=== PATIENT | female | born 1970 | race African-American/Black ===

== ENCOUNTER 2023-06-07 18:13 | Inpatient (IN) | payer OTHER, MEDICAID ==
[~2023-06-07] VITALS: Ht 162.6 cm; Wt 178.7 kg
[2023-06-07 18:25] VITALS: BP_SYST 135; PULSE 90; RESP 22; TEMP 97.1; O2SAT 97
[2023-06-07] MEDS ORDERED: NACL 0.9% 1,000 ML IV ONE ×2 (18:30→22:00)
[2023-06-07 18:54] LABS: ABG O2 SAT% ESTIMATE 92.9 % (94.0-100.0); BLOOD GAS BASE EXCESS 3.6 mmol/L (-3.0-3.0); BLOOD GAS HCO3 29.4 mmol/L (21.0-27.0); BLOOD GAS PCO2 48.5 mmHg (35.0-45.0); BLOOD GAS PO2 66.2 mmHg (75.0-100.0)
[2023-06-07 18:55] LABS: ALLEN'S TEST POSITIVE (P)
[2023-06-07 21:31] LABS: BASOPHILS # (AUTO) 0.1 K/uL (0.0-0.2); BASOPHILS % (AUTO) 0.7 % (0.0-2.0); EOSINOPHILS % (AUTO) 0.2 % (0.0-4.0); HEMATOCRIT 34.8 % (36-48); HEMOGLOBIN 10.9 g/dL (12.0-16.0); LYMPHOCYTES # (AUTO) 1.4 K/uL (1.0-5.5); LYMPHOCYTES % (AUTO) 13.1 % (20.5-51.5); MEAN CORPUSCULAR HEMOGLOBIN 29 pg (27-31); MEAN CORPUSCULAR HGB CONC 31 % (32-36); MEAN CORPUSCULAR VOLUME 93 fL (79.0-98.0); MONOCYTES # (AUTO) 0.7 K/uL (0.0-1.0); MONOCYTES % (AUTO) 6.8 % (1.7-9.3); NEUTROPHILS # (AUTO) 8.2 K/uL (1.8-7.7); NEUTROPHILS % (AUTO) 79.2 % (40.0-70.0); PLATELET COUNT (AUTO) 276 K/uL (130-430); RED BLOOD CELL COUNT(AUTO) 3.74 MIL/uL (4.2-6.2); RED CELL DISTRIBUTION WIDTH 14.3 % (9.0-15.0); WHITE BLOOD COUNT (AUTO) 10.4 K/uL (4.8-10.8)
[2023-06-07 21:46] LABS: ACETONE, SERUM TRACE (NEGATIVE)
[2023-06-07 21:55] LABS: ALANINE AMINOTRANSFERASE 17 U/L (12-78); ALBUMIN 3.6 g/dL (3.4-4.8); ANION GAP 10 (5-15); ASPARTATE AMINOTRANSFERASE 15 U/L (10-37); CALCIUM 9.9 mg/dL (8.4-11.0); CARBON DIOXIDE 30 mmol/L (23-29); CHLORIDE 83 mmol/L (98-107); CREATININE 3.01 mg/dL (0.55-1.30); GFR AFRICAN AMERICAN 21 mL/min (>90); GFR NON AFRICAN-AMERICAN 17 mL/min (>90); POTASSIUM 4.1 mmol/L (3.5-5.1); SODIUM SERUM 123 mmol/L (136-145); TOTAL BILIRUBIN 0.4 mg/dL (0.0-1.0); UREA NITROGEN, BLOOD 64 mg/dL (8-21)
[2023-06-07 21:57] LABS: GLUCOSE 489 mg/dL (74-106)
[2023-06-07] MEDS ORDERED: INSULIN REGULAR, HUMAN 100 UNITS/ML, 3 ML VIAL IVP ONE (23:45)
[2023-06-08] MEDS ORDERED: PANT40TA45 PO (00:38)
[2023-06-08] MEDS ORDERED: ALLO100T PO (00:38)
[2023-06-08] MEDS ORDERED: ATOR20TA64 PO (00:38)
[2023-06-08] MEDS ORDERED: FURO80TA3 PO (00:38)
[2023-06-08] MEDS ORDERED: METO10TA8 PO (00:46)
[2023-06-08] MEDS ORDERED: DULO60CA42 PO (00:46)
[2023-06-08] MEDS ORDERED: SPIR25TA PO (00:46)
[2023-06-08] MEDS ORDERED: CYCL10TA24 PO (00:46)
[2023-06-08] MEDS ORDERED: COR6.25 PO (00:46)
[2023-06-08] MEDS ORDERED: INSU200I SQ (00:46)
[2023-06-08] MEDS ORDERED: GABA800T PO (00:46)
[2023-06-08] MEDS ORDERED: INSU100I26 SQ (00:46)
[2023-06-08] MEDS ORDERED: HYDR200T80 PO (00:46)
[2023-06-08] MEDS ORDERED: HYDR-3927 PO (00:46)
[2023-06-08 01:28] LABS: BILIRUBIN,URINE NEGATIVE (NEGATIVE); BLOOD, URINE 1+ (NEGATIVE); CLARITY/URINE SL CLOUDY (CLEAR); COLOR,URINE YELLOW (YELLOW); GLUCOSE,URINE 3+ (NEGATIVE); KETONES,URINE NEGATIVE (NEGATIVE); LEUKOCYTE ESTERASE ,URINE 2+ (NEGATIVE); NITRITE, URINE NEGATIVE (NEGATIVE); PH,URINE 5.5 (5.0-8.0); PROTEIN URINE NEGATIVE (NEGATIVE); UROBILINOGEN,URINE 0.2 (0.2-1.0)
[2023-06-08 01:32] LABS: BACTERIA,URINE MANY /HPF (None Seen); WBC,URINE 20-50 /HPF (0-3); YEAST,URINE Moderate /HPF (None Seen)
[2023-06-08] MEDS ORDERED: INSULIN REGULAR, HUMAN 10 UNITS/0.1 ML, 3 ML VIAL ONE (07:59)
[2023-06-08] MEDS: INSULIN REGULAR, HUMAN 100 UNITS/ML, 3 ML VIAL (humuLIN R) SUBCUT PRN ×2 (08:02→11:34)
[2023-06-08 09:55] VITALS: BP_SYST 125; PULSE 112; RESP 18; TEMP 98.2; O2SAT 100
[2023-06-08] MEDS ORDERED: ONDANSETRON HCL 4 MG/2 ML VIAL IVP PRN (10:00)
[2023-06-08] MEDS ORDERED: LORazepam 2 MG/ML VIAL IVP PRN (10:00)
[2023-06-08] MEDS ORDERED: NALOXONE HCL 0.4 MG/ML AMP (NARCAN) IVP PRN ×2 (10:00)
[2023-06-08] MEDS ORDERED: INSULIN GLARGINE HUM REC ANLOG 60 UNIT SQ SCH (10:00)
[2023-06-08] MEDS ORDERED: ACETAMINOPHEN 325 MG TABLET PO PRN ×2 (10:00)
[2023-06-08] MEDS ORDERED: [UNRECOGNIZED DRUG - OTHER] SQ SCH (10:00)
[2023-06-08] MEDS ORDERED: CARVEDILOL 6.25 MG TABLET (COREG) PO ONE (10:15)
[2023-06-08] MEDS ORDERED: ALLOPURINOL 100 MG TABLET (ZYLOPRIM) PO ONE (10:15)
[2023-06-08 10:27] LABS: BASOPHILS % (AUTO) 0.4 % (0.0-2.0); EOSINOPHILS # (AUTO) 0.1 K/uL (0.0-0.4); EOSINOPHILS % (AUTO) 0.8 % (0.0-4.0); HEMOGLOBIN 11.4 g/dL (12.0-16.0); LYMPHOCYTES # (AUTO) 1.2 K/uL (1.0-5.5); LYMPHOCYTES % (AUTO) 13.4 % (20.5-51.5); MEAN CORPUSCULAR HEMOGLOBIN 29 pg (27-31); MEAN CORPUSCULAR HGB CONC 31 % (32-36); MEAN CORPUSCULAR VOLUME 94 fL (79.0-98.0); MONOCYTES # (AUTO) 0.7 K/uL (0.0-1.0); MONOCYTES % (AUTO) 7.5 % (1.7-9.3); NEUTROPHILS % (AUTO) 77.9 % (40.0-70.0); PLATELET COUNT (AUTO) 284 K/uL (130-430); RED BLOOD CELL COUNT(AUTO) 3.95 MIL/uL (4.2-6.2); RED CELL DISTRIBUTION WIDTH 14.3 % (9.0-15.0)
[2023-06-08 10:57] LABS: ALBUMIN 3.7 g/dL (3.4-4.8); CALCIUM 9.8 mg/dL (8.4-11.0); CREATININE 2.45 mg/dL (0.55-1.30); PHOSPHORUS 3.9 mg/dL (2.7-4.5); POTASSIUM 3.7 mmol/L (3.5-5.1); TOTAL BILIRUBIN 0.5 mg/dL (0.0-1.0); TOTAL PROTEIN, SERUM 8.3 g/dL (6.4-8.3)
[2023-06-08] MEDS ORDERED: PANTOPRAZOLE SODIUM 40 MG TAB PO ONE (11:00)
[2023-06-08] MEDS ORDERED: HYDROXYCHLOROQUINE SULFATE 200 MG TABLET PO ONE (11:00)
[2023-06-08] MEDS ORDERED: SPIRONOLACTONE 25 MG TABLET (ALDACTONE) PO ONE (11:00)
[2023-06-08] MEDS ORDERED: FUROSEMIDE 80 MG TABLET PO ONE (11:00)
[2023-06-08] MEDS ORDERED: GABAPENTIN 400 MG CAPSULE PO ONE (11:00)
[2023-06-08] MEDS ORDERED: CIPROFLOXACIN LACT 200 MG/D5W 100 ML IV ONE (11:00)
[2023-06-08] MEDS ORDERED: metOLazone 5 MG TABLET PO ONE (11:00)
[2023-06-08] MEDS ORDERED: DULoxetine HCL 30 MG CAPSULE.DR (CYMBALTA) PO ONE (11:00)
[2023-06-08] MEDS: NACL 0.9% 1,000 ML IV SCH ×2 (11:23→20:50)
[2023-06-08] MEDS: HYDROcodone/ACETAMIN 5-325 MG TAB (NORCO/ VICODIN) PO PRN ×2 (11:30→21:22)
[2023-06-08] MEDS ORDERED: INSULIN LISPRO 20 UNIT SQ SCH (11:30)
[2023-06-08] MEDS: INSULIN Lispro 100 UNITS/ML, 3 ML VIAL (humaLOG) SUBCUT SCH ×2 (11:32→16:40)
[2023-06-08 11:52] VITALS: BP_SYST 125; PULSE 112; RESP 18; TEMP 98.2; O2SAT 100
[2023-06-08 12:00] VITALS: BP_SYST 135; PULSE 106; RESP 18; TEMP 97.7; O2SAT 100
[2023-06-08] MEDS: CYCLOBENZAPRINE HCL 10 MG TABLET (FLEXERIL) PO SCH ×2 (14:30→21:18)
[2023-06-08 16:00] VITALS: BP_SYST 129; PULSE 97; RESP 18; TEMP 97.3; O2SAT 98
[2023-06-08 20:00] VITALS: BP_SYST 147; PULSE 95; RESP 17; TEMP 97.7; O2SAT 96
[2023-06-08] MEDS: CIPROFLOXACIN LACT 200 MG/D5W 100 ML IV SCH (20:49)
[2023-06-08 20:57] LABS: CHLORIDE,URINE RANDOM 30 mmol/L (55-125)
[2023-06-08] MEDS: ATORVASTATIN 20 MG TABLET PO SCH (21:18)
[2023-06-08] MEDS: CARVEDILOL 6.25 MG TABLET (COREG) PO SCH (21:19)
[2023-06-08] MEDS: GABAPENTIN 400 MG CAPSULE PO SCH (21:19)
[2023-06-09] VITALS (8 sets, daily range): BP systolic 116–144; PULSE 69–99; RESP 18–19; TEMP 96.8–98.4; O2SAT 93–100
[2023-06-09] MEDS: NACL 0.9% 1,000 ML IV SCH ×2 (06:08→15:34)
[2023-06-09 06:09] LABS: BASOPHILS % (AUTO) 0.7 % (0.0-2.0); EOSINOPHILS # (AUTO) 0.1 K/uL (0.0-0.4); EOSINOPHILS % (AUTO) 1.6 % (0.0-4.0); HEMATOCRIT 34.2 % (36-48); HEMOGLOBIN 10.8 g/dL (12.0-16.0); LYMPHOCYTES # (AUTO) 1.6 K/uL (1.0-5.5); LYMPHOCYTES % (AUTO) 23.3 % (20.5-51.5); MEAN CORPUSCULAR HEMOGLOBIN 29 pg (27-31); MEAN CORPUSCULAR HGB CONC 32 % (32-36); MEAN CORPUSCULAR VOLUME 93 fL (79.0-98.0); MONOCYTES # (AUTO) 0.7 K/uL (0.0-1.0); MONOCYTES % (AUTO) 10.4 % (1.7-9.3); NEUTROPHILS # (AUTO) 4.4 K/uL (1.8-7.7); PLATELET COUNT (AUTO) 266 K/uL (130-430); RED BLOOD CELL COUNT(AUTO) 3.69 MIL/uL (4.2-6.2); RED CELL DISTRIBUTION WIDTH 14.4 % (9.0-15.0); WHITE BLOOD COUNT (AUTO) 6.8 K/uL (4.8-10.8)
[2023-06-09] MEDS: INSULIN Lispro 100 UNITS/ML, 3 ML VIAL (humaLOG) SUBCUT SCH ×3 (06:12→17:07)
[2023-06-09] MEDS: INSULIN REGULAR, HUMAN 100 UNITS/ML, 3 ML VIAL (humuLIN R) SUBCUT PRN ×4 (06:15→22:10)
[2023-06-09 06:42] LABS: ALBUMIN 3.3 g/dL (3.4-4.8); CALCIUM 9.8 mg/dL (8.4-11.0); CREATININE 2.18 mg/dL (0.55-1.30); PHOSPHORUS 4.1 mg/dL (2.7-4.5); TOTAL BILIRUBIN 0.4 mg/dL (0.0-1.0); TOTAL PROTEIN, SERUM 7.6 g/dL (6.4-8.3)
[2023-06-09] MEDS: GABAPENTIN 400 MG CAPSULE PO SCH ×2 (08:45→21:58)
[2023-06-09] MEDS: metOLazone 5 MG TABLET PO SCH (08:45)
[2023-06-09] MEDS: ALLOPURINOL 100 MG TABLET (ZYLOPRIM) PO SCH (08:46)
[2023-06-09] MEDS: PANTOPRAZOLE SODIUM 40 MG TAB PO SCH (08:46)
[2023-06-09] MEDS: DULoxetine HCL 30 MG CAPSULE.DR (CYMBALTA) PO SCH (08:46)
[2023-06-09] MEDS: HYDROXYCHLOROQUINE SULFATE 200 MG TABLET PO SCH (08:46)
[2023-06-09] MEDS: CYCLOBENZAPRINE HCL 10 MG TABLET (FLEXERIL) PO SCH ×3 (08:46→21:58)
[2023-06-09] MEDS: CARVEDILOL 6.25 MG TABLET (COREG) PO SCH ×2 (08:47→21:58)
[2023-06-09] MEDS: SPIRONOLACTONE 25 MG TABLET (ALDACTONE) PO SCH (08:47)
[2023-06-09] MEDS: FUROSEMIDE 80 MG TABLET PO SCH (08:47)
[2023-06-09] MEDS: INSULIN GLARGINE 100 UNITS/ML, 10 ML VIAL SUBCUT SCH (08:51)
[2023-06-09] MEDS: HYDROcodone/ACETAMIN 5-325 MG TAB (NORCO/ VICODIN) PO PRN ×2 (08:58→17:03)
[2023-06-09] MEDS: CIPROFLOXACIN LACT 200 MG/D5W 100 ML IV SCH ×2 (10:10→21:57)
[2023-06-09] MEDS: ATORVASTATIN 20 MG TABLET PO SCH (21:58)
[2023-06-10] VITALS (7 sets, daily range): BP systolic 109–144; PULSE 68–101; RESP 18–20; TEMP 97.5–98.6; O2SAT 93–100
[2023-06-10] MEDS: NACL 0.9% 1,000 ML IV SCH ×2 (02:40→14:12)
[2023-06-10] MEDS: SPIRONOLACTONE 25 MG TABLET (ALDACTONE) PO SCH (09:59)
[2023-06-10] MEDS: GABAPENTIN 400 MG CAPSULE PO SCH ×2 (10:00→20:31)
[2023-06-10] MEDS: DULoxetine HCL 30 MG CAPSULE.DR (CYMBALTA) PO SCH (10:00)
[2023-06-10] MEDS: FUROSEMIDE 80 MG TABLET PO SCH (10:00)
[2023-06-10] MEDS: PANTOPRAZOLE SODIUM 40 MG TAB PO SCH (10:00)
[2023-06-10] MEDS: ALLOPURINOL 100 MG TABLET (ZYLOPRIM) PO SCH (10:00)
[2023-06-10] MEDS: CARVEDILOL 6.25 MG TABLET (COREG) PO SCH ×2 (10:01→20:32)
[2023-06-10] MEDS: CYCLOBENZAPRINE HCL 10 MG TABLET (FLEXERIL) PO SCH ×3 (10:02→20:33)
[2023-06-10] MEDS: HYDROXYCHLOROQUINE SULFATE 200 MG TABLET PO SCH (10:27)
[2023-06-10] MEDS: metOLazone 5 MG TABLET PO SCH (10:41)
[2023-06-10] MEDS: INSULIN GLARGINE 100 UNITS/ML, 10 ML VIAL SUBCUT SCH ×2 (10:43→20:45)
[2023-06-10 11:01] LABS: BASOPHILS # (AUTO) 0.1 K/uL (0.0-0.2); BASOPHILS % (AUTO) 0.8 % (0.0-2.0); EOSINOPHILS # (AUTO) 0.1 K/uL (0.0-0.4); EOSINOPHILS % (AUTO) 1.2 % (0.0-4.0); HEMATOCRIT 33.7 % (36-48); HEMOGLOBIN 10.4 g/dL (12.0-16.0); LYMPHOCYTES # (AUTO) 1.2 K/uL (1.0-5.5); LYMPHOCYTES % (AUTO) 17.7 % (20.5-51.5); MEAN CORPUSCULAR HEMOGLOBIN 29 pg (27-31); MEAN CORPUSCULAR HGB CONC 31 % (32-36); MEAN CORPUSCULAR VOLUME 94 fL (79.0-98.0); MONOCYTES # (AUTO) 0.7 K/uL (0.0-1.0); MONOCYTES % (AUTO) 10.2 % (1.7-9.3); NEUTROPHILS # (AUTO) 4.7 K/uL (1.8-7.7); NEUTROPHILS % (AUTO) 70.1 % (40.0-70.0); PLATELET COUNT (AUTO) 242 K/uL (130-430); RED BLOOD CELL COUNT(AUTO) 3.59 MIL/uL (4.2-6.2); RED CELL DISTRIBUTION WIDTH 14.5 % (9.0-15.0); WHITE BLOOD COUNT (AUTO) 6.7 K/uL (4.8-10.8)
[2023-06-10] MEDS: HYDROcodone/ACETAMIN 5-325 MG TAB (NORCO/ VICODIN) PO PRN ×2 (11:01→20:37)
[2023-06-10 11:13] LABS: CALCIUM 9.5 mg/dL (8.4-11.0); CREATININE 1.9 mg/dL (0.55-1.30); POTASSIUM 3.3 mmol/L (3.5-5.1)
[2023-06-10] MEDS: INSULIN Lispro 100 UNITS/ML, 3 ML VIAL (humaLOG) SUBCUT SCH ×2 (11:30→17:22)
[2023-06-10] MEDS: CIPROFLOXACIN LACT 200 MG/D5W 100 ML IV SCH ×2 (11:57→20:57)
[2023-06-10] MEDS: INSULIN REGULAR, HUMAN 100 UNITS/ML, 3 ML VIAL (humuLIN R) SUBCUT PRN ×3 (12:09→20:47)
[2023-06-10] MEDS ORDERED: CHOLECALCIFEROL (VITAMIN D3) 2,000 UNIT TABLET PO ONE (15:00)
[2023-06-10] MEDS: ATORVASTATIN 20 MG TABLET PO SCH (20:33)
[2023-06-11] VITALS (7 sets, daily range): BP systolic 109–161; PULSE 57–96; RESP 16–20; TEMP 97.6–98.8; O2SAT 94–100
[2023-06-11] MEDS: NACL 0.9% 1,000 ML IV SCH ×3 (03:14→17:06)
[2023-06-11 06:24] LABS: BASOPHILS # (AUTO) 0.1 K/uL (0.0-0.2); EOSINOPHILS # (AUTO) 0.1 K/uL (0.0-0.4); EOSINOPHILS % (AUTO) 2.1 % (0.0-4.0); HEMATOCRIT 31.4 % (36-48); HEMOGLOBIN 9.8 g/dL (12.0-16.0); LYMPHOCYTES # (AUTO) 1.5 K/uL (1.0-5.5); LYMPHOCYTES % (AUTO) 21.8 % (20.5-51.5); MEAN CORPUSCULAR HEMOGLOBIN 29 pg (27-31); MEAN CORPUSCULAR HGB CONC 31 % (32-36); MEAN CORPUSCULAR VOLUME 93 fL (79.0-98.0); MONOCYTES # (AUTO) 0.8 K/uL (0.0-1.0); MONOCYTES % (AUTO) 11.5 % (1.7-9.3); NEUTROPHILS # (AUTO) 4.5 K/uL (1.8-7.7); NEUTROPHILS % (AUTO) 63.6 % (40.0-70.0); PLATELET COUNT (AUTO) 235 K/uL (130-430); RED BLOOD CELL COUNT(AUTO) 3.36 MIL/uL (4.2-6.2); RED CELL DISTRIBUTION WIDTH 14.5 % (9.0-15.0)
[2023-06-11 07:02] LABS: CALCIUM 9.1 mg/dL (8.4-11.0); CREATININE 1.67 mg/dL (0.55-1.30); PHOSPHORUS 3.1 mg/dL (2.7-4.5); POTASSIUM 3.2 mmol/L (3.5-5.1)
[2023-06-11] MEDS: INSULIN Lispro 100 UNITS/ML, 3 ML VIAL (humaLOG) SUBCUT SCH ×3 (07:16→16:21)
[2023-06-11 08:41] LABS: ERYTHROCYTE SEDIMENTATION RATE 69 MM/HR (0-20)
[2023-06-11] MEDS: PANTOPRAZOLE SODIUM 40 MG TAB PO SCH (09:05)
[2023-06-11] MEDS: CHOLECALCIFEROL (VITAMIN D3) 2,000 UNIT TABLET PO SCH (09:05)
[2023-06-11] MEDS: GABAPENTIN 400 MG CAPSULE PO SCH ×2 (09:07→21:47)
[2023-06-11] MEDS: DULoxetine HCL 30 MG CAPSULE.DR (CYMBALTA) PO SCH (09:07)
[2023-06-11] MEDS: ALLOPURINOL 100 MG TABLET (ZYLOPRIM) PO SCH (09:07)
[2023-06-11] MEDS: CARVEDILOL 6.25 MG TABLET (COREG) PO SCH ×2 (09:07→21:48)
[2023-06-11] MEDS: SPIRONOLACTONE 25 MG TABLET (ALDACTONE) PO SCH (09:08)
[2023-06-11] MEDS: FUROSEMIDE 80 MG TABLET PO SCH (09:08)
[2023-06-11] MEDS: CYCLOBENZAPRINE HCL 10 MG TABLET (FLEXERIL) PO SCH ×3 (09:08→21:47)
[2023-06-11] MEDS: HYDROXYCHLOROQUINE SULFATE 200 MG TABLET PO SCH (09:08)
[2023-06-11] MEDS: INSULIN GLARGINE 100 UNITS/ML, 10 ML VIAL SUBCUT SCH ×2 (09:14→22:09)
[2023-06-11] MEDS: HYDROcodone/ACETAMIN 5-325 MG TAB (NORCO/ VICODIN) PO PRN (09:17)
[2023-06-11] MEDS: metOLazone 5 MG TABLET PO SCH (09:28)
[2023-06-11] MEDS: CIPROFLOXACIN LACT 200 MG/D5W 100 ML IV SCH ×2 (10:46→21:51)
[2023-06-11] MEDS: INSULIN REGULAR, HUMAN 100 UNITS/ML, 3 ML VIAL (humuLIN R) SUBCUT PRN ×3 (11:41→22:04)
[2023-06-11] MEDS ORDERED: POTASSIUM CHLORIDE 20 MEQ TABLET.ER PO ONE (15:15)
[2023-06-11] MEDS: ATORVASTATIN 20 MG TABLET PO SCH (21:46)
[2023-06-12 00:05] VITALS: BP_SYST 139; PULSE 96; RESP 16; TEMP 97.7; O2SAT 97
[2023-06-12] MEDS: NACL 0.9% 1,000 ML IV SCH ×3 (03:55→23:36)
[2023-06-12] MEDS: INSULIN Lispro 100 UNITS/ML, 3 ML VIAL (humaLOG) SUBCUT SCH ×3 (07:00→16:56)
[2023-06-12 07:55] VITALS: BP_SYST 135; PULSE 89; RESP 18; TEMP 97.4; O2SAT 100
[2023-06-12 08:01] LABS: BASOPHILS # (AUTO) 0.1 K/uL (0.0-0.2); BASOPHILS % (AUTO) 0.8 % (0.0-2.0); EOSINOPHILS # (AUTO) 0.2 K/uL (0.0-0.4); EOSINOPHILS % (AUTO) 2.8 % (0.0-4.0); HEMATOCRIT 31.7 % (36-48); HEMOGLOBIN 9.9 g/dL (12.0-16.0); LYMPHOCYTES # (AUTO) 1.5 K/uL (1.0-5.5); LYMPHOCYTES % (AUTO) 23.6 % (20.5-51.5); MEAN CORPUSCULAR HEMOGLOBIN 29 pg (27-31); MEAN CORPUSCULAR HGB CONC 31 % (32-36); MEAN CORPUSCULAR VOLUME 94 fL (79.0-98.0); MONOCYTES # (AUTO) 0.8 K/uL (0.0-1.0); MONOCYTES % (AUTO) 12.6 % (1.7-9.3); NEUTROPHILS # (AUTO) 3.7 K/uL (1.8-7.7); NEUTROPHILS % (AUTO) 60.2 % (40.0-70.0); PLATELET COUNT (AUTO) 251 K/uL (130-430); RED BLOOD CELL COUNT(AUTO) 3.37 MIL/uL (4.2-6.2); RED CELL DISTRIBUTION WIDTH 14.6 % (9.0-15.0); WHITE BLOOD COUNT (AUTO) 6.2 K/uL (4.8-10.8)
[2023-06-12 08:11] LABS: CALCIUM 8.6 mg/dL (8.4-11.0); CREATININE 1.57 mg/dL (0.55-1.30); PHOSPHORUS 2.7 mg/dL (2.7-4.5); POTASSIUM 3.3 mmol/L (3.5-5.1)
[2023-06-12 08:20] LABS: ERYTHROCYTE SEDIMENTATION RATE 75 MM/HR (0-20)
[2023-06-12] MEDS: DULoxetine HCL 30 MG CAPSULE.DR (CYMBALTA) PO SCH (08:27)
[2023-06-12] MEDS: metOLazone 5 MG TABLET PO SCH (08:27)
[2023-06-12] MEDS: CYCLOBENZAPRINE HCL 10 MG TABLET (FLEXERIL) PO SCH ×3 (08:27→21:30)
[2023-06-12] MEDS: GABAPENTIN 400 MG CAPSULE PO SCH ×2 (08:27→21:29)
[2023-06-12] MEDS: CHOLECALCIFEROL (VITAMIN D3) 2,000 UNIT TABLET PO SCH (08:28)
[2023-06-12] MEDS: PANTOPRAZOLE SODIUM 40 MG TAB PO SCH (08:28)
[2023-06-12] MEDS: FUROSEMIDE 80 MG TABLET PO SCH (08:28)
[2023-06-12] MEDS: ALLOPURINOL 100 MG TABLET (ZYLOPRIM) PO SCH (08:28)
[2023-06-12] MEDS: SPIRONOLACTONE 25 MG TABLET (ALDACTONE) PO SCH (08:28)
[2023-06-12] MEDS: HYDROXYCHLOROQUINE SULFATE 200 MG TABLET PO SCH (08:29)
[2023-06-12] MEDS: CARVEDILOL 6.25 MG TABLET (COREG) PO SCH ×2 (08:29→21:35)
[2023-06-12] MEDS: HYDROcodone/ACETAMIN 5-325 MG TAB (NORCO/ VICODIN) PO PRN ×3 (08:30→21:31)
[2023-06-12] MEDS: INSULIN GLARGINE 100 UNITS/ML, 10 ML VIAL SUBCUT SCH ×2 (08:37→21:00)
[2023-06-12] MEDS: CIPROFLOXACIN LACT 200 MG/D5W 100 ML IV SCH ×2 (10:03→21:29)
[2023-06-12 10:55] VITALS: O2SAT 98
[2023-06-12 11:39] VITALS: BP_SYST 113; PULSE 89; RESP 16; TEMP 97.1; O2SAT 99
[2023-06-12] MEDS: INSULIN REGULAR, HUMAN 100 UNITS/ML, 3 ML VIAL (humuLIN R) SUBCUT PRN ×2 (12:12→16:57)
[2023-06-12 15:06] VITALS: BP_SYST 113; PULSE 93; RESP 16; TEMP 99; O2SAT 100
[2023-06-12 20:00] VITALS: BP_SYST 139; PULSE 66; RESP 18; TEMP 97.5; O2SAT 98
[2023-06-12] MEDS: ATORVASTATIN 20 MG TABLET PO SCH (21:35)
[2023-06-13 00:23] VITALS: BP_SYST 113; PULSE 95; RESP 20; TEMP 98.3; O2SAT 99
[2023-06-13 05:44] LABS: BASOPHILS # (AUTO) 0.1 K/uL (0.0-0.2); BASOPHILS % (AUTO) 0.8 % (0.0-2.0); EOSINOPHILS # (AUTO) 0.2 K/uL (0.0-0.4); EOSINOPHILS % (AUTO) 3.1 % (0.0-4.0); HEMATOCRIT 29.6 % (36-48); HEMOGLOBIN 9.2 g/dL (12.0-16.0); LYMPHOCYTES # (AUTO) 1.8 K/uL (1.0-5.5); LYMPHOCYTES % (AUTO) 29.1 % (20.5-51.5); MEAN CORPUSCULAR HEMOGLOBIN 29 pg (27-31); MEAN CORPUSCULAR HGB CONC 31 % (32-36); MEAN CORPUSCULAR VOLUME 94 fL (79.0-98.0); MONOCYTES # (AUTO) 0.8 K/uL (0.0-1.0); MONOCYTES % (AUTO) 12.9 % (1.7-9.3); NEUTROPHILS # (AUTO) 3.4 K/uL (1.8-7.7); NEUTROPHILS % (AUTO) 54.1 % (40.0-70.0); PLATELET COUNT (AUTO) 243 K/uL (130-430); RED BLOOD CELL COUNT(AUTO) 3.16 MIL/uL (4.2-6.2); RED CELL DISTRIBUTION WIDTH 14.3 % (9.0-15.0); WHITE BLOOD COUNT (AUTO) 6.3 K/uL (4.8-10.8)
[2023-06-13 06:11] LABS: ALBUMIN 2.6 g/dL (3.4-4.8); CALCIUM 8.5 mg/dL (8.4-11.0); CREATININE 1.5 mg/dL (0.55-1.30); PHOSPHORUS 3.3 mg/dL (2.7-4.5); POTASSIUM 3.2 mmol/L (3.5-5.1); TOTAL BILIRUBIN 0.2 mg/dL (0.0-1.0); TOTAL PROTEIN, SERUM 6.1 g/dL (6.4-8.3)
[2023-06-13 06:27] LABS: ERYTHROCYTE SEDIMENTATION RATE 67 MM/HR (0-20)
[2023-06-13 08:00] VITALS: BP_SYST 123; PULSE 69; RESP 16; TEMP 96.8; O2SAT 97; O2SAT 99
[2023-06-13] MEDS: CIPROFLOXACIN LACT 200 MG/D5W 100 ML IV SCH (09:00)
[2023-06-13] MEDS ORDERED: INSU100I26 SQ (09:43)
[2023-06-13] MEDS ORDERED: CIPR500T5 PO (09:43)
[2023-06-13] MEDS: GABAPENTIN 400 MG CAPSULE PO SCH (09:54)
[2023-06-13] MEDS: DULoxetine HCL 30 MG CAPSULE.DR (CYMBALTA) PO SCH (09:55)
[2023-06-13] MEDS: FUROSEMIDE 80 MG TABLET PO SCH (09:56)
[2023-06-13] MEDS: PANTOPRAZOLE SODIUM 40 MG TAB PO SCH (09:57)
[2023-06-13] MEDS: CHOLECALCIFEROL (VITAMIN D3) 2,000 UNIT TABLET PO SCH (09:57)
[2023-06-13] MEDS: SPIRONOLACTONE 25 MG TABLET (ALDACTONE) PO SCH (09:58)
[2023-06-13] MEDS: CYCLOBENZAPRINE HCL 10 MG TABLET (FLEXERIL) PO SCH ×2 (09:59→15:00)
[2023-06-13] MEDS: ALLOPURINOL 100 MG TABLET (ZYLOPRIM) PO SCH (09:59)
[2023-06-13] MEDS ORDERED: POTASSIUM CHLORIDE 20 MEQ TABLET.ER PO ONE (10:00)
[2023-06-13] MEDS ORDERED: MAGNESIUM SULFATE 50 ML IV ONE (10:00)
[2023-06-13] MEDS: HYDROcodone/ACETAMIN 5-325 MG TAB (NORCO/ VICODIN) PO PRN ×2 (10:03→17:47)
[2023-06-13] MEDS: INSULIN GLARGINE 100 UNITS/ML, 10 ML VIAL SUBCUT SCH (10:14)
[2023-06-13] MEDS: INSULIN Lispro 100 UNITS/ML, 3 ML VIAL (humaLOG) SUBCUT SCH ×3 (10:16→17:45)
[2023-06-13] MEDS: HYDROXYCHLOROQUINE SULFATE 200 MG TABLET PO SCH (10:26)
[2023-06-13] MEDS: CARVEDILOL 6.25 MG TABLET (COREG) PO SCH (10:29)
[2023-06-13] MEDS: metOLazone 5 MG TABLET PO SCH (10:47)
[2023-06-13 11:33] VITALS: BP_SYST 134; PULSE 99; RESP 16; TEMP 98.6; O2SAT 99
[2023-06-13] MEDS: INSULIN REGULAR, HUMAN 100 UNITS/ML, 3 ML VIAL (humuLIN R) SUBCUT PRN ×2 (11:58→17:44)
[2023-06-13 15:10] VITALS: BP_SYST 112; PULSE 101; RESP 16; TEMP 97.5; O2SAT 96
[2023-06-13 15:36] VITALS: BP_SYST 112; PULSE 100; RESP 18; TEMP 101; O2SAT 96
== END 2023-06-13 20:30 | disposition home health service (06) | DRG 682 ==
LOC: SED 18:13 → SMU 06-08 00:18
PROVIDERS: ADMIT Preventive Medicine Preventive Medicine/Occupational Environmental Medicine; ATTEND Preventive Medicine Preventive Medicine/Occupational Environmental Medicine
DX: N17.9 Acute kidney failure, unspecified (principal); E11.00 Type 2 diabetes mellitus with hyperosmolarity without nonketotic hyperglycemic-hyperosmolar coma (NKHHC); E43 Unspecified severe protein-calorie malnutrition; E87.1 Hypo-osmolality and hyponatremia; N39.0 Urinary tract infection, site not specified; Z68.44 Body mass index [BMI] 60.0-69.9, adult; E11.65 Type 2 diabetes mellitus with hyperglycemia; D64.9 Anemia, unspecified; E11.21 Type 2 diabetes mellitus with diabetic nephropathy; I12.9 Hypertensive chronic kidney disease with stage 1 through stage 4 chronic kidney disease, or unspecified chronic kidney disease; E11.22 Type 2 diabetes mellitus with diabetic chronic kidney disease; N18.32 Chronic kidney disease, stage 3b; E87.5 Hyperkalemia; E78.5 Hyperlipidemia, unspecified; E21.3 Hyperparathyroidism, unspecified; E55.9 Vitamin D deficiency, unspecified; Z88.0 Allergy status to penicillin
CPT/HCPCS: 36415; 36600; 76770; 80048; 80053; 81000; 81001; 81015; 82009; 82306; 82435; 82570; 82803; 82962; 83037; 83605; 83735; 83970; 84100; 84302; 85025; 85651-TC; 87086; 96361; 96374; 97110-GP; 97530-GP; 99285; J0744; J1815; J3475

== ENCOUNTER 2023-07-15 11:43 | Emergency (ER) | payer OTHER, MEDICAID ==
[~2023-07-15] VITALS: Ht 170.2 cm; Wt 174.2 kg
[~2023-07-15 11:43] MED LIST: ALLO100T PO; ATOR20TA64 PO; CIPR500T5 PO; COR6.25 PO; CYCL10TA24 PO; DULO60CA42 PO; FURO80TA3 PO; GABA800T PO; HYDR-3927 PO; HYDR200T80 PO; INSU100I26 SQ; INSU200I SQ; METO10TA8 PO; PANT40TA45 PO; SPIR25TA PO
[2023-07-15 11:59] VITALS: BP_SYST 131; PULSE 104; RESP 18; TEMP 98; O2SAT 100
[2023-07-15 13:27] LABS: BASOPHILS # (AUTO) 0.1 K/uL (0.0-0.2); BASOPHILS % (AUTO) 0.8 % (0.0-2.0); EOSINOPHILS # (AUTO) 0.1 K/uL (0.0-0.4); HEMATOCRIT 36.4 % (36-48); HEMOGLOBIN 11.8 g/dL (12.0-16.0); LYMPHOCYTES # (AUTO) 1.3 K/uL (1.0-5.5); LYMPHOCYTES % (AUTO) 15.4 % (20.5-51.5); MEAN CORPUSCULAR HEMOGLOBIN 30 pg (27-31); MEAN CORPUSCULAR HGB CONC 32 % (32-36); MEAN CORPUSCULAR VOLUME 94 fL (79.0-98.0); MONOCYTES # (AUTO) 0.5 K/uL (0.0-1.0); MONOCYTES % (AUTO) 6.3 % (1.7-9.3); NEUTROPHILS # (AUTO) 6.4 K/uL (1.8-7.7); NEUTROPHILS % (AUTO) 76.5 % (40.0-70.0); PLATELET COUNT (AUTO) 302 K/uL (130-430); RED BLOOD CELL COUNT(AUTO) 3.87 MIL/uL (4.2-6.2); RED CELL DISTRIBUTION WIDTH 15.2 % (9.0-15.0); WHITE BLOOD COUNT (AUTO) 8.4 K/uL (4.8-10.8)
[2023-07-15 13:35] LABS: ALANINE AMINOTRANSFERASE 1 U/L (12-78); ALBUMIN 3.8 g/dL (3.4-4.8); ANION GAP 9 (5-15); ASPARTATE AMINOTRANSFERASE 18 U/L (10-37); BILIRUBIN,DIRECT 0.1 mg/dL (0.0-0.3); CALCIUM 9.9 mg/dL (8.4-11.0); CARBON DIOXIDE 33 mmol/L (23-29); CHLORIDE 87 mmol/L (98-107); CREATININE 2.65 mg/dL (0.55-1.30); GFR AFRICAN AMERICAN 24 mL/min (>90); SODIUM SERUM 129 mmol/L (136-145); TOTAL BILIRUBIN 0.6 mg/dL (0.0-1.0); TOTAL PROTEIN, SERUM 8.7 g/dL (6.4-8.3); UREA NITROGEN, BLOOD 49 mg/dL (8-21)
[2023-07-15 13:37] LABS: GFR NON AFRICAN-AMERICAN 20 mL/min (>90)
[2023-07-15 13:40] LABS: GLUCOSE 581 mg/dL (74-106)
[2023-07-15 13:50] LABS: ACETONE, SERUM NEGATIVE (NEGATIVE)
[2023-07-15] MEDS ORDERED: INSULIN REGULAR, HUMAN 10 UNITS/0.1 ML, 3 ML VIAL IVP ONE ×2 (14:00→18:00)
[2023-07-15] MEDS ORDERED: NACL 0.9% 2,000 ML IV ONE (14:00)
[2023-07-15] MEDS ORDERED: HYDR-3927 PO (16:26)
[2023-07-15] MEDS ORDERED: SULF1TAB48 PO (16:26)
[2023-07-15] MEDS ORDERED: HYDROcodone/ACETAMIN 10-325 MG TAB PO ONE (16:30)
== END 2023-07-15 19:35 | disposition home or self-care (01) ==
LOC: SED 11:43
DX: E11.621 Type 2 diabetes mellitus with foot ulcer (principal); I10 Essential (primary) hypertension; Z88.0 Allergy status to penicillin; Z79.899 Other long term (current) drug therapy
CPT/HCPCS: 99283; 96374; 96361; 96375; 80076; 80048; 82009; 82962; 85025; 36415; 73630; J7030; 99284; J1815

== ENCOUNTER 2023-08-31 16:48 | Emergency (ER) | payer OTHER, MEDICAID ==
[~2023-08-31] VITALS: Ht 162.6 cm; Wt 181.4 kg
[~2023-08-31 16:48] MED LIST changes: +SULF1TAB48 PO
[2023-08-31 16:50] VITALS: BP_SYST 127; PULSE 104; RESP 19; TEMP 99.4; O2SAT 100
[2023-08-31 18:34] LABS: BASOPHILS # (AUTO) 0.1 K/uL (0.0-0.2); BASOPHILS % (AUTO) 0.9 % (0.0-2.0); EOSINOPHILS # (AUTO) 0.1 K/uL (0.0-0.4); EOSINOPHILS % (AUTO) 1.9 % (0.0-4.0); HEMATOCRIT 36.3 % (36-48); HEMOGLOBIN 11.8 g/dL (12.0-16.0); LYMPHOCYTES # (AUTO) 1.2 K/uL (1.0-5.5); LYMPHOCYTES % (AUTO) 16.6 % (20.5-51.5); MEAN CORPUSCULAR HEMOGLOBIN 30 pg (27-31); MEAN CORPUSCULAR HGB CONC 33 % (32-36); MEAN CORPUSCULAR VOLUME 93 fL (79.0-98.0); MONOCYTES # (AUTO) 0.4 K/uL (0.0-1.0); MONOCYTES % (AUTO) 5.1 % (1.7-9.3); NEUTROPHILS # (AUTO) 5.6 K/uL (1.8-7.7); NEUTROPHILS % (AUTO) 75.5 % (40.0-70.0); PLATELET COUNT (AUTO) 340 K/uL (130-430); RED BLOOD CELL COUNT(AUTO) 3.92 MIL/uL (4.2-6.2); RED CELL DISTRIBUTION WIDTH 16.2 % (9.0-15.0); WHITE BLOOD COUNT (AUTO) 7.4 K/uL (4.8-10.8)
[2023-08-31 18:44] LABS: CALCIUM 9.5 mg/dL (8.4-11.0); CREATININE 1.76 mg/dL (0.55-1.30); POTASSIUM 4.6 mmol/L (3.5-5.1)
[2023-08-31 18:48] LABS: ALBUMIN 3.5 g/dL (3.4-4.8); BILIRUBIN,DIRECT 0.1 mg/dL (0.0-0.3); TOTAL BILIRUBIN 0.4 mg/dL (0.0-1.0); TOTAL PROTEIN, SERUM 8.3 g/dL (6.4-8.3)
[2023-08-31 20:19] LABS: BILIRUBIN,URINE NEGATIVE (NEGATIVE); BLOOD, URINE 3+ (NEGATIVE); CLARITY/URINE HAZY (CLEAR); COLOR,URINE YELLOW (YELLOW); GLUCOSE,URINE 3+ (NEGATIVE); KETONES,URINE NEGATIVE (NEGATIVE); LEUKOCYTE ESTERASE ,URINE 2+ (NEGATIVE); NITRITE, URINE NEGATIVE (NEGATIVE); PROTEIN URINE 2+ (NEGATIVE); UROBILINOGEN,URINE 0.2 (0.2-1.0)
[2023-08-31 20:45] LABS: BACTERIA,URINE MODERATE /HPF (None Seen); WBC,URINE 20-50 /HPF (0-3); YEAST,URINE Few /HPF (None Seen)
[2023-08-31] MEDS: MAG HYDROX/AL HYDROX/SIMETH 30 ML, DICYCLOMINE HCL 20 MG, LIDOCAINE VISCOUS 2% 15ML (PO... PO ONE (21:20)
[2023-08-31] MEDS ORDERED: CEPH-548 PO (21:28)
== END 2023-08-31 21:38 | disposition home or self-care (01) ==
LOC: SED 16:48
DX: N39.0 Urinary tract infection, site not specified (principal); R10.84 Generalized abdominal pain; K21.9 Gastro-esophageal reflux disease without esophagitis; E11.9 Type 2 diabetes mellitus without complications; I10 Essential (primary) hypertension; Z88.0 Allergy status to penicillin; Z79.899 Other long term (current) drug therapy; Z90.710 Acquired absence of both cervix and uterus; Z98.890 Other specified postprocedural states
CPT/HCPCS: 36415; 80048; 80076; 81000; 81001; 81015; 83690; 85025; 87086; 99284; J2001